=== PATIENT | female | born 1995 | race Hispanic/Latino ===

== ENCOUNTER 2023-09-13 06:20 | Inpatient (IN) | payer MEDICAID, OTHER ==
[2023-09-13 06:47] VITALS: BMI 30.6
[2023-09-13] MEDS ORDERED: Oxytocin 30 units/NS 500 ML 500 ML IV SCH (07:07)
[2023-09-13] MEDS ORDERED: fentaNYL 50 mcg/mL 1 mL Vial SLOW IVP PRN (07:07)
[2023-09-13] MEDS ORDERED: Tranexamic Acid 1,000 MG/10 ML VIAL IVP PRN (07:07)
[2023-09-13] MEDS ORDERED: HYDROcodone/Acetaminophen 5/325 mg Tablet PO PRN (07:07)
[2023-09-13] MEDS ORDERED: Ondansetron PF 4 MG/2 ML Vial IVP PRN ×3 (07:07→14:42)
[2023-09-13] MEDS ORDERED: Promethazine HCl 25 MG/ML VIAL IM PRN ×3 (07:07→14:42)
[2023-09-13] MEDS ORDERED: Diphenoxylate HCl/Atropine Tablet PO PRN (07:07)
[2023-09-13] MEDS ORDERED: Misoprostol 200 MCG TAB PR PRN (07:07)
[2023-09-13] MEDS ORDERED: Methylergonovine 0.2 MG/ML VIAL IM PRN (07:07)
[2023-09-13] MEDS ORDERED: Acetaminophen 500 MG TAB PO PRN (07:07)
[2023-09-13] MEDS ORDERED: Lidocaine 1% (PF) 30 ML VIAL SC PRN (07:07)
[2023-09-13] MEDS ORDERED: Carboprost 250 MCG/ML AMP IM PRN (07:07)
[2023-09-13] MEDS ORDERED: hydrALAZINE 20 MG/ML VIAL SLOW IVP PRN ×2 (07:07→14:42)
[2023-09-13 07:32] LABS: Hematocrit 34.1 % (34.9-44.5); Hemoglobin 12.2 g/dL (12.0-15.5); Mean Corpuscular HGB CONC 35.8 g/dL (32.0-36.0); Mean Corpuscular Hemoglobin 32.2 pg (27.0-33.0); Mean Platelet Volume 11.5 fL (7.4-10.4); Platelet Count 178 10x3/uL (150-450); RBC Distribution Width 12.3 % (11.5-14.5); Red Blood Cell (RBC) Count 3.79 10x6/uL (3.90-5.03); White Blood Cell (WBC) Count 5.9 10x3/uL (3.5-10.5)
[2023-09-13] MEDS: Oxytocin 30 units/NS 500 ML 500 ML ONE (08:03)
[2023-09-13 08:11] LABS: Syphilis Antibody Nonreactive (Nonreactive); Syphilis Antibody Index 0.04 S/CO (<1.00 Non-Reactive)
[2023-09-13 08:12] LABS: Hep B Surf Ag - L&D Non-Reactive S/CO (NonReactive)
[2023-09-13] MEDS ORDERED: Bupivacaine 0.25% HCL 30 ML VIAL ONE (09:00)
[2023-09-13] MEDS: fentaNYL/Ropivacaine Epidural 100 ML ONE (10:12)
[2023-09-13] MEDS ORDERED: diphenhydrAMINE 50 MG/ML VIAL IVP PRN (10:17)
[2023-09-13] MEDS ORDERED: ePHEDrine Sulfate 50 MG/10 ML VIAL SLOW IVP PRN (10:17)
[2023-09-13] MEDS ORDERED: Acetaminophen 325 MG TAB PO PRN (10:17)
[2023-09-13] MEDS ORDERED: Moisturizing Cream (Eucerin) 113 GM JAR TOP PRN (10:17)
[2023-09-13] MEDS ORDERED: Lactated Ringer's 500 ML IV PRN (10:17)
[2023-09-13] MEDS ORDERED: Naloxone HCl 0.4 mg/ml Vial IVP PRN ×2 (10:17)
[2023-09-13] MEDS ORDERED: Communication Order-Pharmacy FS SCH (10:30)
[2023-09-13] MEDS ORDERED: fentaNYL 2 mcg/Ropivacaine 0.2% Epidural 100 ML CADD EPIDURAL SCH (10:30)
[2023-09-13] MEDS: Oxytocin 30 units/NS 500 ML 500 ML IV SCH (13:17)
[2023-09-13] MEDS: Ibuprofen 800 MG TAB PO PRN (13:48)
[2023-09-13] MEDS ORDERED: Bisacodyl 10 MG SUPP PR PRN (14:42)
[2023-09-13] MEDS ORDERED: Milk Of Magnesia 30 ML UDCUP PO PRN (14:42)
[2023-09-13] MEDS ORDERED: cloNIDine 0.1 MG TAB PO PRN (14:42)
[2023-09-13] MEDS ORDERED: Boostrix 0.5 ML (Tdap) VIAL (>/=7 yrs of age) IM ONE (14:42)
[2023-09-13] MEDS ORDERED: Lanolin Ointment 7 GM TUBE TOP PRN (14:42)
[2023-09-13] MEDS ORDERED: diphenhydrAMINE 25 MG CAP PO PRN (14:42)
[2023-09-13] MEDS: Ferrous Sulfate 325 MG TAB PO SCH (17:17)
[2023-09-13] MEDS: HYDROcodone/Acetaminophen 5/325 mg Tablet PO PRN (17:58)
[2023-09-13] MEDS: Docusate 100 MG CAP PO SCH (21:42)
[2023-09-13] MEDS: Ibuprofen 800 MG TAB PO SCH (21:42)
[2023-09-14] MEDS: Prenatal Vitamin 1 TAB PO SCH (10:46)
[2023-09-15 08:15] VITALS: BP 137/92; TEMP 98
== END 2023-09-15 17:53 | disposition home or self-care (01) | DRG 807 ==
LOC: CSHLD 06:20 → CSHPP 14:10
PROVIDERS: ADMIT Family Medicine; ATTEND Family Medicine
PROC: 10907ZC Drainage of Amniotic Fluid, Therapeutic from Products of Conception, Via Natural or Artificial Opening (ICD-10-PCS; principal; 2023-09-13)
PROC: 10E0XZZ Delivery of Products of Conception, External Approach (ICD-10-PCS; 2023-09-13)
DX: O80 Encounter for full-term uncomplicated delivery (principal); Z37.0 Single live birth; Z3A.39 39 weeks gestation of pregnancy
CPT/HCPCS: 51702; 85027; 86780; 86850; 86900; 86901; 87340; 99285; J0665; J2590